=== PATIENT | female | born 1995 | race Caucasian/White ===

== ENCOUNTER 2020-01-19 22:30 | Emergency (ER) | payer SELFPAY ==
[2020-01-19] MEDS ORDERED: ASPIRIN 81 MG TABLET, CHEWABLE PO ONE (23:03)
--- NOTE | 2020-01-19 23:05 | ER Document Report ---
ED Medical Screen (RME) - General Stated Complaint: CHEST/RIGHT ARM PAIN Time Seen by Provider: 01/19/20 22:59 Notes: Patient is a 24-year-old female who presents emergency department with chest pain. States that her pain started about an hour prior to arrival. States the pain is in the middle of her chest. Patient also had right arm pain at the same time. Describes her pain as sharp coming and going. Has a history of PCOS. She is a current half a pack a day smoker. Exam: S1, S2. Twelve-lead EKG shows sinus rhythm at heart rate of 74. Blood pressure elevated, patient does not take blood pressure medication. I have greeted and performed a rapid initial assessment of this patient. A comprehensive ED assessment and evaluation of the patient, analysis of test results and completion of medical decision making process will be conducted by an additional ED providers. TRAVEL OUTSIDE OF THE [place] IN LAST 30 DAYS: No - Related Data Allergies/Adverse Reactions: amoxicillin [Amoxicillin] Allergy (Verified 09/20/15 05:26) Past Medical History - Immunizations Hx Diphtheria, Pertussis, Tetanus Vaccination: Yes Physical Exam - Vital signs Vitals: Temp Pulse Resp BP Pulse Ox 97.9 F 81 20 155/106 H 98 01/19/20 22:45 01/19/20 22:45 01/19/20 22:45 01/19/20 22:45 01/19/20 22:45 Course - Vital Signs Vital signs: Temp Pulse Resp BP Pulse Ox 97.9 F 81 20 155/106 H 98 01/19/20 22:56 01/19/20 22:45 01/19/20 22:45 01/19/20 22:45 01/19/20 22:45
[2020-01-19 23:52] LABS: ABSOLUTE BASOPHILS # (AUTO) 0.1 10^3/uL (0.0-0.2); ABSOLUTE EOSINOPHILS # (AUTO) 0.5 10^3/uL (0.0-0.6); ABSOLUTE LYMPHOCYTES (AUTO) 2.7 10^3/uL (0.5-4.7); ABSOLUTE MONOCYTES (AUTO) 0.8 10^3/uL (0.1-1.4); ABSOLUTE NEUT (AUTO) 8.1 10^3/uL (1.7-8.2); BASOPHILS % (AUTO) 0.8 % (0-2); HEMATOCRIT 42.8 % (36.0-47.0); HEMOGLOBIN 15.2 g/dL (12.0-15.5); LYMPHOCYTES % (AUTO) 22.3 % (13-45); MEAN CORPUSCULAR HEMOGLOBIN 31.8 pg (27.0-33.4); MEAN CORPUSCULAR HGB CONC 35.4 g/dL (32.0-36.0); MEAN CORPUSCULAR VOLUME 90 fl (80-97); MONOCYTES % (AUTO) 6.2 % (3-13); PLATELET COUNT 324 10^3/uL (150-450); RED BLOOD COUNT 4.77 10^6/uL (3.72-5.28); RED CELL DISTRIBUTION WIDTH 12.8 % (11.5-14.0); SEGMENTED NEUTROPHILS % (AUTO) 66.7 % (42-78); TOTAL CELLS COUNTED % (AUTO) 100 %; WHITE BLOOD COUNT 12.2 10^3/uL (4.0-10.5)
[2020-01-20 00:10] LABS: ALBUMIN 4.4 g/dL (3.5-5.0); ALKALINE PHOSPHATASE 73 U/L (38-126); ANION GAP 7 (5-19); ASPARTATE AMINO TRANSFERASE 30 U/L (14-36); BILIRUBIN,TOTAL 0.3 mg/dL (0.2-1.3); BLOOD UREA NITROGEN 13 mg/dL (7-20); CARBON DIOXIDE 28 mmol/L (22-30); CHLORIDE 103 mmol/L (98-107); CREATINE KINASE 35 U/L (30-135); GLUCOSE 97 mg/dL (75-110); POTASSIUM 4.3 mmol/L (3.6-5.0); TOTAL PROTEIN 7.5 g/dL (6.3-8.2)
--- NOTE | 2020-01-20 00:14 | RADIOLOGY REPORT (SQ) ---
CLINICAL INDICATION: chest pain. TECHNIQUE: A single portable AP view was obtained of the chest at 0012 hours. COMPARISON: None. FINDINGS: The cardiomediastinal silhouette is normal. The lungs are grossly clear. No evidence of effusion or pneumothorax. The visualized bones are unremarkable. IMPRESSION: No evidence of active intrathoracic disease. Lungs of low volume but grossly clear
--- NOTE | 2020-01-20 01:49 | ER Document Report ---
ED General - General Chief Complaint: Chest Pain Stated Complaint: CHEST/RIGHT ARM PAIN Time Seen by Provider: 01/19/20 22:59 TRAVEL OUTSIDE OF THE [place] IN LAST 30 DAYS: No - HPI Notes: 24-year-old female history of smoking presents with sudden onset of moderate aching retrosternal chest pain radiating to right arm that began at rest while she was watching TV and gradually improved over the next few hours with no pain currently. Patient denies exertional chest pain, pleuritic chest pain, lower extremity edema, recent travel/immobilization/surgery, - Related Data Allergies/Adverse Reactions: amoxicillin [Amoxicillin] Allergy (Verified 09/20/15 05:26) Past Medical History - Social History Smoking Status: Current Every Day Smoker Frequency of alcohol use: None Drug Abuse: None Family History: Reviewed & Not Pertinent Patient has homicidal ideation: No - Immunizations Hx Diphtheria, Pertussis, Tetanus Vaccination: Yes Physical Exam - Vital signs Vitals: Temp Pulse Resp BP Pulse Ox 97.9 F 81 20 155/106 H 98 01/19/20 22:45 01/19/20 22:45 01/19/20 22:45 01/19/20 22:45 01/19/20 22:45 Course - Vital Signs Vital signs: Temp Pulse Resp BP Pulse Ox 97.9 F 81 23 H 135/108 H 98 01/19/20 22:56 01/19/20 22:45 01/20/20 01:37 01/20/20 01:37 01/20/20 01:39 - Laboratory Result Diagrams: 01/19/20 23:39 01/19/20 23:39 Laboratory results interpreted by me: 01/19/20 23:39 WBC 12.2 H Discharge - Discharge Clinical Impression: Chest pain Qualifiers: Chest pain type: unspecified Qualified Code(s): R07.9 - Chest pain, unspecified Condition: Stable Disposition: HOME, SELF-CARE Additional Instructions: Chest Pain of Unclear Cause The exact cause of your chest pain isn't clear. Fortunately, there is no evidence of a dangerous medical condition. Further testing may be required to find the source of the pain. Most often, we find that this pain is coming from the chest wall -- the mus cles or rib joints in the chest. But chest pain can come from the lung and lung lining, the esophagus, the heart valves or heart lining, and even the stomach or gallbladder. Rest. Eat lightly until the pain is gone. We may prescribe medicine for pain and inflammation. Follow-up with your primary doctor within 1 week. Make sure to have your blood pressure rechecked as it was high in the emergency room, 155/106 then 135/108, and high blood pressure is a risk factor for dangerous diseases such as heart attack and stroke. Return to the ED immediately if your pain worsens, you have trouble breathing, dizziness or fainting, swelling in your legs, or any other worsening or alarming symptoms.
[2020-01-20 04:27] VITALS: BP 135/97
--- NOTE | 2020-01-20 23:33 | EKG REPORT ---
SEVERITY:- NORMAL ECG - SINUS RHYTHM : Confirmed by: Stephanie Acevedo 20-Jan-2020 23:33:19
== END 2020-01-20 04:20 | disposition home or self-care (01) ==
LOC: ER 22:30
DX: R07.9 Chest pain, unspecified (principal); F17.200 Nicotine dependence, unspecified, uncomplicated; Z88.0 Allergy status to penicillin
CPT/HCPCS: 36415; 71045; 80053; 82550; 83735; 84484; 85025; 85379; 93005; 93010; 99285

== ENCOUNTER 2020-01-26 01:27 | Emergency (ER) | payer SELFPAY ==
[2020-01-26 02:52] LABS: ABSOLUTE BASOPHILS # (AUTO) 0.1 10^3/uL (0.0-0.2); ABSOLUTE EOSINOPHILS # (AUTO) 0.5 10^3/uL (0.0-0.6); ABSOLUTE LYMPHOCYTES (AUTO) 2.7 10^3/uL (0.5-4.7); ABSOLUTE MONOCYTES (AUTO) 0.7 10^3/uL (0.1-1.4); ABSOLUTE NEUT (AUTO) 7.9 10^3/uL (1.7-8.2); BASOPHILS % (AUTO) 0.8 % (0-2); HEMATOCRIT 44.4 % (36.0-47.0); HEMOGLOBIN 15.5 g/dL (12.0-15.5); LYMPHOCYTES % (AUTO) 22.9 % (13-45); MEAN CORPUSCULAR HEMOGLOBIN 31.3 pg (27.0-33.4); MEAN CORPUSCULAR HGB CONC 34.8 g/dL (32.0-36.0); MEAN CORPUSCULAR VOLUME 90 fl (80-97); MONOCYTES % (AUTO) 6.3 % (3-13); PLATELET COUNT 330 10^3/uL (150-450); RED BLOOD COUNT 4.94 10^6/uL (3.72-5.28); RED CELL DISTRIBUTION WIDTH 12.7 % (11.5-14.0); TOTAL CELLS COUNTED % (AUTO) 100 %; WHITE BLOOD COUNT 11.9 10^3/uL (4.0-10.5)
[2020-01-26 03:09] LABS: ALBUMIN 4.3 g/dL (3.5-5.0); ALKALINE PHOSPHATASE 78 U/L (38-126); ANION GAP 9 (5-19); ASPARTATE AMINO TRANSFERASE 29 U/L (14-36); BILIRUBIN,TOTAL 0.3 mg/dL (0.2-1.3); BLOOD UREA NITROGEN 11 mg/dL (7-20); CALCIUM 9.7 mg/dL (8.4-10.2); CARBON DIOXIDE 25 mmol/L (22-30); CHLORIDE 104 mmol/L (98-107); CREATINE KINASE 41 U/L (30-135); GLUCOSE 99 mg/dL (75-110); POTASSIUM 4.2 mmol/L (3.6-5.0); TOTAL PROTEIN 7.8 g/dL (6.3-8.2)
[2020-01-26 03:25] LABS: CREATINE KINASE MB 0.27 ng/mL (<4.55)
[2020-01-26 03:26] LABS: TROPONIN I < 0.012 ng/mL
--- NOTE | 2020-01-26 06:24 | RADIOLOGY REPORT (SQ) ---
EXAM DESCRIPTION: XR CHEST 2 VIEWS COMPLETED DATE/TME: 01/26/2020 05:31 CLINICAL HISTORY: chest pain; shortness of breath COMPARISON: 01/20/2020 FINDINGS: Frontal and lateral views of the chest. Cardiomediastinal silhouette: Cardiomegaly. Low lung volumes. Leads overlie the chest. Lungs: No consolidation, pneumothorax, or pleural effusion. Bones: No acute osseous abnormality. Upper abdomen: No abnormality identified. IMPRESSION: 1. No acute pulmonary process identified. 2. Cardiomegaly.
--- NOTE | 2020-01-26 06:48 | RADIOLOGY REPORT (SQ) ---
EXAM DESCRIPTION: US ABDOMEN LIMITED COMPLETED DATE/TME: 01/26/2020 05:45 CLINICAL HISTORY: 24 years, Female, RUQ pain COMPARISON: None. TECHNIQUE: Limited right upper quadrant ultrasound LIMITATIONS: None. FINDINGS: Echogenic appearance to the liver consistent with fatty infiltrative change. Multiple stones in the gallbladder lumen. Negative sonographic Shannon sign. No gallbladder wall thickening. No pericholecystic fluid. CBD measures 2.5 mm. Pancreas not well seen due to bowel gas. The visualized right kidney, abdominal aorta, inferior vena cava are unremarkable. No ascites IMPRESSION: Fatty infiltrative change to the liver. Cholelithiasis. No sonographic evidence for cholecystitis copyright 2010 [employer]- All Rights Reserved
--- NOTE | 2020-01-26 07:27 | ER Document Report ---
ED Cardiac - General Chief Complaint: Chest Pain Stated Complaint: CHEST PAIN/SHORTNESS OF BREATH Time Seen by Provider: 01/26/20 05:29 Primary Care Provider: [facility] [Provider Group] - Follow up as needed Notes: Patient is a 24-year-old female who presents to the emergency department with a chief complaint of chest pain. Patient was seen here in the emergency department last week and had a normal cardiac work-up. Patient states that she continues to have pain in her chest. Patient also states that she sometimes feels short of breath. Denies any vomiting. Patient does not take any medications. TRAVEL OUTSIDE OF THE [place] IN LAST 30 DAYS: No - Related Data Allergies/Adverse Reactions: amoxicillin [Amoxicillin] Allergy (Verified 09/20/15 05:26) Past Medical History - Social History Smoking Status: Current Every Day Smoker Frequency of alcohol use: None Drug Abuse: None Family History: Reviewed & Not Pertinent Patient has homicidal ideation: No - Immunizations Hx Diphtheria, Pertussis, Tetanus Vaccination: Yes Review of Systems - Review of Systems Notes: REVIEW OF SYSTEMS: CONSTITUTIONAL : Denies recent illness. Denies recent unintentional weight loss. Denies fever, chills, or sweats. EENT: Denies eye, ear, throat, or mouth pain, discharge, or symptoms. Denies nasal or sinus congestion. CARDIOVASCULAR: See HPI. RESPIRATORY: See HPI. GASTROINTESTINAL: Denies nausea, vomiting, and diarrhea. Denies abdominal pain. Denies constipation. GENITOURINARY: Denies difficulty urinating, burning, blood in urine, urgency or frequency. MUSCULOSKELETAL: Denies neck and back pain. Denies joint pain or swelling. SKIN: Denies rash, itchiness, or lesions HEMATOLOGIC : Denies easy bruising or bleeding. LYMPHATIC: Denies swollen, painful, enlarged glands. NEUROLOGICAL: Denies no numbness or tingling denies weakness. Denies headache. Denies altered mental status. Denies alteration in speech. PSYCHIATRIC: Denies stress, anxiety, alteration in sleep patterns, or depression. All other systems reviewed and negative. Physical Exam - Vital signs Vitals: Temp 98.4 F 01/26/20 01:41 - Notes Notes: PHYSICAL EXAMINATION: GENERAL: Appears obese, no acute distress. HEAD: Normocephalic, atraumatic. EYES: PERRL, conjunctiva normal, all extraocular movements intact, sclera nonicteric ENT: Moist mucous membranes. NECK: Supple, no noticeable swelling, redness, rash. Normal range of motion. LUNGS: Equal breath sounds bilaterally and clear to auscultation. No wheezes rales or rhonchi. CARDIOVASCULAR: S1-S2, regular rate, regular rhythm. Radial pulses 2+, normal. ABDOMEN: Normoactive bowel sounds. Soft, tender right upper quadrant abdomen, mild guarding, no rebound tenderness, and no masses palpated. EXTREMITIES: Normal strength and range of motion, no pitting or edema. No cyanosis. NEUROLOGICAL: Moves all extremities upon command. Strength 5/5 in all extremities. PSYCH: Normal mood, normal affect. SKIN: Warm, dry. No rash, lesions, ulcerations noted. Normal skin turgor. Course - Re-evaluation Re-evalutation: 01/26/20 Hematology shows a slight leukocytosis of 11,900, but no shift. Chemistries are unremarkable. Troponin is negative. Initial troponin was drawn in triage. Second troponin was already drawn prior to my assessment. BNP is negative and lipase is negative. Patient has cholelithiasis noted. No Cholecystitis noted on ultrasound. Patient is to follow-up with outpatient surgery. I had a very lengthy conversation with the patient about her weight and eating habits. She states that she will stop eating fatty foods. Follow-up precautions were given. Verbal discharge instructions were given to the patient. They verbalized understanding. They are stable for discharge. - Vital Signs Vital signs: Temp Pulse Resp BP Pulse Ox 98.4 F 74 18 135/79 H 96 01/26/20 01:41 01/26/20 01:43 01/26/20 07:22 01/26/20 07:22 01/26/20 07:22 - Laboratory Result Diagrams: 01/26/20 02:30 01/26/20 02:30 Laboratory results interpreted by me: 01/26/20 02:30 WBC 11.9 H Discharge - Discharge Clinical Impression: Chest pain Qualifiers: Chest pain type: unspecified Qualified Code(s): R07.9 - Chest pain, unspecified Cholelithiasis Qualifiers: Cholelithiasis location: gallbladder Cholecystitis presence: without cholecystitis Biliary obstruction: without biliary obstruction Qualified Code(s): K80.20 - Calculus of gallbladder without cholecystitis without obstruction Condition: Stable Disposition: HOME, SELF-CARE Additional Instructions: Your ultrasound and history is most consistent with symptomatic cholelithiasis. This means that you have stones in your gallbladder that are causing pain when you eat fatty foods. You will likely need to have your gallbladder out in the coming weeks to prevent further pain. The best thing you can do at this time is to avoid fat-containing foods which will trigger your symptoms. Please contact the general surgeon listed in your discharge paperwork at your earliest ability for consultation regarding possible removal of your gallbladder. Please return to the emergency department if you develop persistent pain in your abdomen that will not go away, persistent vomiting, fever greater than 100.4F, pass out, or have any other symptoms that are concerning to you. Referrals: [facility] [Provider Group] - Follow up as needed
[2020-01-26 08:00] VITALS: BP 135/79
--- NOTE | 2020-01-26 09:32 | EKG REPORT ---
SEVERITY:- NORMAL ECG - SINUS RHYTHM : Confirmed by: Yoli Vo MD 26-Jan-2020 09:31:41
== END 2020-01-26 07:53 | disposition home or self-care (01) ==
LOC: ER 01:27
DX: R07.9 Chest pain, unspecified (principal); K80.20 Calculus of gallbladder without cholecystitis without obstruction; K76.0 Fatty (change of) liver, not elsewhere classified; R06.02 Shortness of breath; F17.200 Nicotine dependence, unspecified, uncomplicated; Z88.0 Allergy status to penicillin; D72.829 Elevated white blood cell count, unspecified
CPT/HCPCS: 36415; 71046; 76705; 80053; 82550; 82553; 83690; 83880; 84484; 85025; 93005; 93010; 99285

== ENCOUNTER 2020-02-15 12:22 | Emergency (ER) | payer SELFPAY ==
--- NOTE | 2020-02-15 13:05 | ER Document Report ---
ED Medical Screen (RME) - General Chief Complaint: Abdominal Pain Stated Complaint: ABDOMINAL PAIN Notes: 24-year-old female with a past medical history of gallstones presenting today with acute onset of right upper quadrant pain that radiates up to her right shoulder. It is similar in onset to her previous gallstone attacks. One episode of vomiting this morning. Has decreased appetite. Still feels nauseous. Denies any fevers, chills, shortness of breath, diarrhea, dysuria or additional symptoms Last menstrual period was January 30. Reports that she does not take any medications. I have greeted and performed a rapid initial assessment of this patient. A co mprehesive ED assessment and evaluation of this patient, analysis of test results and completion of the medical decision-making process will be conducted by additional ED providers. TRAVEL OUTSIDE OF THE [place] IN LAST 30 DAYS: No - Related Data Allergies/Adverse Reactions: amoxicillin [Amoxicillin] Allergy (Verified 09/20/15 05:26) Past Medical History - Social History Chew tobacco use (# tins/day): No Frequency of alcohol use: None Drug Abuse: None - Immunizations Hx Diphtheria, Pertussis, Tetanus Vaccination: Yes Review of Systems - Review of Systems Constitutional: No symptoms reported EENT: No symptoms reported Cardiovascular: No symptoms reported Respiratory: No symptoms reported Gastrointestinal: See HPI Genitourinary: No symptoms reported Physical Exam - Vital signs Vitals: Temp Pulse Resp BP Pulse Ox 98.4 F 77 16 149/95 H 96 02/15/20 12:02/15/20 12:02/15/20 12:02/15/20 12:02/15/20 12:25 Interpretation: Hypertensive. No: Febrile - Notes Notes: Right upper quadrant is tender to palpation. No rebound or guarding. Bowel sounds heard in all 4 quadrants. Course - Vital Signs Vital signs: Temp Pulse Resp BP Pulse Ox 98.4 F 77 16 149/95 H 96 02/15/20 12:57 02/15/20 12:02/15/20 12:25 02/15/20 12:25 02/15/20 12:25
[2020-02-15] MEDS ORDERED: ONDANSETRON 4 MG TAB.RAPDIS PO ONE (13:07)
[2020-02-15] MEDS ORDERED: MORPHINE SULFATE 10 MG/ML INJ IV ONE ×2 (13:08→14:56)
[2020-02-15 13:52] LABS: APPEARANCE,URINE SLIGHTLY-CLOUDY; BILIRUBIN,URINE NEGATIVE (NEGATIVE); COLOR,URINE YELLOW; GLUCOSE, URINE NEGATIVE (NEGATIVE); KETONES,URINE NEGATIVE (NEGATIVE); LEUKOCYTE ESTERASE,URINE LARGE (NEGATIVE); NITRITE,URINE NEGATIVE (NEGATIVE); PROTEIN,URINE NEGATIVE (NEGATIVE); URINE SPECIFIC GRAVITY 1.005; UROBILINOGEN,URINE NEGATIVE mg/dL (<2.0)
[2020-02-15 13:57] LABS: ABSOLUTE BASOPHILS # (AUTO) 0.1 10^3/uL (0.0-0.2); ABSOLUTE EOSINOPHILS # (AUTO) 0.2 10^3/uL (0.0-0.6); ABSOLUTE MONOCYTES (AUTO) 0.7 10^3/uL (0.1-1.4); BASOPHILS % (AUTO) 0.5 % (0-2); EOSINOPHILS % (AUTO) 2.4 % (0-6); HEMATOCRIT 46.1 % (36.0-47.0); HEMOGLOBIN 16.2 g/dL (12.0-15.5); LYMPHOCYTES % (AUTO) 19.8 % (13-45); MEAN CORPUSCULAR HEMOGLOBIN 32.1 pg (27.0-33.4); MEAN CORPUSCULAR HGB CONC 35.3 g/dL (32.0-36.0); MEAN CORPUSCULAR VOLUME 91 fl (80-97); MONOCYTES % (AUTO) 7.4 % (3-13); PLATELET COUNT 316 10^3/uL (150-450); RED BLOOD COUNT 5.07 10^6/uL (3.72-5.28); RED CELL DISTRIBUTION WIDTH 13.1 % (11.5-14.0); SEGMENTED NEUTROPHILS % (AUTO) 69.9 % (42-78); TOTAL CELLS COUNTED % (AUTO) 100 %
[2020-02-15 14:23] LABS: ALBUMIN 4.8 g/dL (3.5-5.0); ALKALINE PHOSPHATASE 68 U/L (38-126); ANION GAP 8 (5-19); ASPARTATE AMINO TRANSFERASE 35 U/L (14-36); BILIRUBIN,TOTAL 0.5 mg/dL (0.2-1.3); BLOOD UREA NITROGEN 10 mg/dL (7-20); CALCIUM 10.4 mg/dL (8.4-10.2); CARBON DIOXIDE 26 mmol/L (22-30); CHLORIDE 105 mmol/L (98-107); GLUCOSE 100 mg/dL (75-110); POTASSIUM 4.6 mmol/L (3.6-5.0); TOTAL PROTEIN 8.2 g/dL (6.3-8.2)
--- NOTE | 2020-02-15 14:50 | ER Document Report ---
ED GI/ - General Chief Complaint: Abdominal Pain Stated Complaint: ABDOMINAL PAIN Time Seen by Provider: 02/15/20 14:36 Primary Care Provider: [facility] [Provider Group] - Follow up as needed [facility] [Provider Group] - Follow up as needed Notes: Patient is a 24-year-old female who presents emergency department with a chief complaint of abdominal pain. Patient reports starting last night she developed right upper quadrant pain that radiates into her right shoulder. Patient reports within the past month she was seen here in the emergency department and was told that she was having problems with her gallbladder. Patient reports she did attempt to follow-up with [facility] to have her gallbladder removed but cannot afford the initial cost to be seen due to lack of health insurance. Patient reports she was also denied Medicaid. Patient states that she did attempt to eat breakfast this morning and vomited once. Patient reports she is also having some urinary frequency and lower pelvic cramping. Patient reports since being seen in the emergency department she has limited caffeine, soda and limited fats. Patient reports she has been eating a bland diet over the past 2 weeks with very little improvement. TRAVEL OUTSIDE OF THE [place] IN LAST 30 DAYS: No - Related Data Allergies/Adverse Reactions: amoxicillin [Amoxicillin] Allergy (Verified 09/20/15 05:26) Past Medical History - General Information source: Patient - Social History Smoking Status: Former Smoker Chew tobacco use (# tins/day): No Frequency of alcohol use: None Drug Abuse: None Lives with: Family Family History: Reviewed & Not Pertinent - Past Medical History Cardiac Medical History: Reports: None Pulmonary Medical History: Reports: None EENT Medical History: Reports: None Neurological Medical History: Reports: None Endocrine Medical History: Reports: None Renal/ Medical History: Reports: None Malignancy Medical History: Reports: None GI Medical History: Reports: None Musculoskeletal Medical History: Reports None Skin Medical History: Reports None Psychiatric Medical History: Reports: None Traumatic Medical History: Reports: None Surgical Hx: Negative - Immunizations Hx Diphtheria, Pertussis, Tetanus Vaccination: Yes Review of Systems - Review of Systems Constitutional: No symptoms reported EENT: No symptoms reported Cardiovascular: No symptoms reported Respiratory: No symptoms reported Gastrointestinal: See HPI Genitourinary: See HPI Female Genitourinary: No symptoms reported Musculoskeletal: No symptoms reported Skin: No symptoms reported Physical Exam - Vital signs Vitals: Temp Pulse Resp BP Pulse Ox 98.4 F 77 16 149/95 H 96 02/15/20 12:25 02/15/20 12:25 02/15/20 12:25 02/15/20 12:25 02/15/20 12:25 Interpretation: Hypertensive - Notes Notes: GENERAL: Well-appearing, well-nourished and in no acute distress. HEAD: Atraumatic, normocephalic. EYES: Pupils equal round and reactive to light, extraocular movements intact, sclera anicteric, conjunctiva are normal. ENT: TMs normal, nares patent, oropharynx clear without exudates. Moist mucous membranes. NECK: Normal range of motion, supple without lymphadenopathy or JVD. LUNGS: Breath sounds clear to auscultation bilaterally and equal. No wheezes rales or rhonchi. HEART: Regular rate and rhythm without murmurs, rubs or gallops. ABDOMEN: Soft, mild ruq ttp, abd round, normoactive bowel sounds. No guarding, no rebound. No masses appreciated. BACK: No cervical, thoracic, lumbar midline tenderness. No saddle anesthesia, normal distal neurovascular exam. No CVA tenderness. GENITOURINARY: Deferred. EXTREMITIES: Normal range of motion, no pitting or edema. No clubbing or cyanosis. NEUROLOGICAL: Cranial nerves II through XII grossly intact. Normal speech, normal gait. PSYCH: Normal mood, normal affect. SKIN: Warm, Dry, normal turgor, no rashes or lesions noted. Course - Re-evaluation Re-evalutation: 02/15/20 Prior to discharge the patient states that her pain has significantly improved. Her vital signs are stable. I did inform the patient that her ultrasound did not show an acute cholecystitis or emergent issue. Ultimately the patient does have gallstones and if this does continue to bother her this will need to be removed. Patient aware of this. Patient reports she has having financial struggles. She states she has filled out the paperwork for [facility] and is awaiting a follow-up appointment. Patient instructed to return if symptoms worsen or change. We will treat urinary tract infection, give pain medication as well as nausea medication. Patient was able to tolerate liquids prior to discharge. - Vital Signs Vital signs: Temp Pulse Resp BP Pulse Ox 98.0 F 60 18 120/83 98 02/15/20 16:57 02/15/20 16:57 02/15/20 16:57 02/15/20 16:57 02/15/20 16:57 - Laboratory Result Diagrams: 02/15/20 13:38 02/15/20 13:38 Laboratory results interpreted by me: 02/15/20 02/15/20 02/15/20 13:38 13:38 13:38 Hgb 16.2 H Calcium 10.4 H ALT 46 H Ur Leukocyte Esterase LARGE H 02/15/20 14:49 Patient does not have a leukocytosis, significant anemia, alteration in electrolytes or kidney function. Patient does have a large amount of leukocytes with 10 WBCs in the urine. Laboratory 02/15/20 02/15/20 02/15/20 13:38 13:38 13:38 WBC 10.0 RBC 5.07 Hgb 16.2 H Hct 46.1 MCV 91 MCH 32.1 MCHC 35.3 RDW 13.1 Plt Count 316 Lymph % (Auto) 19.8 [place] % (Auto) 7.4 Eos % (Auto) 2.4 Baso % (Auto) 0.5 Absolute Neuts (auto) 7.0 Absolute Lymphs (auto) 2.0 Absolute Monos (auto) 0.7 Absolute Eos (auto) 0.2 Absolute Basos (auto) 0.1 Seg Neutrophils % 69.9 Sodium 138.5 Potassium 4.6 Chloride 105 Carbon Dioxide 26 Anion Gap 8 BUN 10 Creatinine 0.80 Est GFR ( Amer) > 60 Est GFR (MDRD) Non-Af > 60 Glucose 100 Calcium 10.4 H Total Bilirubin 0.5 Direct Bilirubin 0.0 Neonat Total Bilirubin Not Reportable Neonat Direct Bilirubin Not Reportable Neonat Indirect Bili Not Reportable AST 35 ALT 46 H Alkaline Phosphatase 68 Total Protein 8.2 Albumin 4.8 Lipase 65.9 Urine Color YELLOW Urine Appearance SLIGHTLY-CLOUDY Urine pH 5.0 Ur Specific [place] 1.005 Urine Protein NEGATIVE Urine Glucose (UA) NEGATIVE Urine Ketones NEGATIVE Urine Blood NEGATIVE Urine Nitrite NEGATIVE Urine Bilirubin NEGATIVE Urine Urobilinogen NEGATIVE Ur Leukocyte Esterase LARGE H Urine WBC (Auto) 10 Urine RBC (Auto) 3 Urine Bacteria (Auto) TRACE Squamous Epi Cells Auto 2 Urine Mucus (Auto) RARE Urine Ascorbic Acid NEGATIVE Urine HCG, Qual NEGATIVE - Diagnostic Test Radiology reviewed: Reports reviewed Radiology results interpreted by me: 02/15/20 16:24 Abdomen Ultrasound 02/15/20 13:05 IMPRESSION: Gallstones. Fatty infiltrated liver. Discharge - Discharge Clinical Impression: Dysuria, Urinary frequency, Gallstones Condition: Stable Disposition: HOME, SELF-CARE Additional Instructions: *Today are seen the emergency department for abdominal pain. Does appear that you are having a gallbladder attack. The ultrasound was performed did not show any acute inflammation around the gallbladder. You do have stones. Please keep following up with the [facility]. I have referred you to [facility]. Please return if you develop severe pain, repeated vomiting, fever, jaundice which is yellow coloring of your skin otherwise your eyes. Gallbladder Disease Your evaluation shows evidence of gallbladder disease. The gallbladder is a pouch under the liver which stores bile. Stones, infection, or irritation of the gallbladder cause attacks of pain. Certain foods -- fats in particular -- may provoke attacks. The usual treatment for gallbladder disease is surgical removal of the gallbladder -- called a cholecystectomy. You will be referred to a physician q ualified to advise you on the best treatment for your problem. Hospitalization is not necessary. Take clear liquids only until you are painfree. After that, you should stay on a low-fat diet, with frequent SMALL meals. Call the doctor or return at once if you develop severe pain, repeated vomiting, fever, or jaundice (a yellow color in the skin and whites of the eyes). Prescriptions: Ondansetron [Zofran Odt 4 mg Tablet] 1 tab PO Q4HP PRN #10 tab.rapdis PRN Reason: Ketorolac Tromethamine [Toradol 10 mg Tablet] 10 mg PO Q8HP PRN #12 tablet PRN Reason: Nitrofurantoin Monohyd/M-Cryst [Macrobid 100 mg Capsule] 100 mg PO BID 5 Days #10 cap Referrals: [facility] [Provider Group] - Follow up as needed [facility] [Provider Group] - Follow up as needed
[2020-02-15] MEDS ORDERED: KETOROLAC TROMETHAMINE INJ/PF 30 MG/1 ML SDV IV ONE (14:53)
[2020-02-15] MEDS ORDERED: ONDANSETRON HCL INJ/PF 4 MG/2 ML SDV IV ONE (14:53)
[2020-02-15] MEDS ORDERED: NORMAL SALINE 1000 ML 1,000 ML IV ONE (14:53)
--- NOTE | 2020-02-15 15:43 | RADIOLOGY REPORT (SQ) ---
EXAM DESCRIPTION: U/S ABDOMEN LIMITED W/O DOP IMAGES COMPLETED DATE/TIME: 02/15/2020 3:32 pm REASON FOR STUDY: ruq pain COMPARISON: None. TECHNIQUE: Dynamic and static grayscale images acquired of the abdomen and recorded on PACS. Additio nal selected color Doppler and spectral images recorded. LIMITATIONS: 01/26/2020 FINDINGS: PANCREAS: Visualized portions the pancreas are unremarkable. The pancreas is mildly echog enic. LIVER: No masses. The liver is echogenic consistent with fatty infiltration. LIVER VASCULATURE: Normal directional flow of the main portal vein and hepatic veins. GALLBLADDER: Gallstones. No wall thickening or pericholecystic edema. ULTRASOUND-DETECTED GOMEZ'S SIGN: Negative. INTRAHEPATIC DUCTS AND COMMON DUCT: CBD and intrahepatic ducts normal caliber. No filling defects. INFERIOR VENA CAVA: Normal flow. AORTA: No aneurysm. RIGHT KIDNEY: Normal size. Normal echogenicity. No solid or suspicious masses. No hydronephrosis. No calcifications. PERITONEAL AND RIGHT PLEURAL SPACE: No ascites or effusions. OTHER: No other significant findings. IMPRESSION: Gallstones. Fatty infiltrated liver. TECHNICAL DOCUMENTATION: JOB ID: [id number] [employer]- All Rights Reserved Reading location - IP/workstation name: [email or web address]
[2020-02-15 16:57] VITALS: BP 120/83
== END 2020-02-15 16:57 | disposition home or self-care (01) ==
LOC: ER 12:22
DX: K80.80 Other cholelithiasis without obstruction (principal); R35.0 Frequency of micturition; R30.0 Dysuria; R10.9 Unspecified abdominal pain; Z88.0 Allergy status to penicillin
CPT/HCPCS: 99284; 96361; 96374; 96375; 36415; 83690; 85025; 81025; 80053; 81001; 76705; J1885; J2270; J2405; J7030

== ENCOUNTER 2020-02-20 20:41 | Emergency (ER) | payer SELFPAY ==
--- NOTE | 2020-02-20 21:11 | ER Document Report ---
ED Medical Screen (RME) - General Chief Complaint: Chest Pain Stated Complaint: CHEST PAIN,SHORTNES OF BREATH Time Seen by Provider: 02/20/20 21:04 Mode of Arrival: Ambulatory Information source: Patient Notes: 24-year-old female presented to ED for complaint of shortness of breath and chest pain. She states she does have a history of gallstones and fatty liver. She also has a history of anxiety. Lungs are clear to auscultation, respirations regular nonlabored, and abdomen soft nontender I have greeted and performed a rapid initial assessment of this patient. A comprehensive ED assessment and evaluation of the patient, analysis of test results and completion of medical decision making process will be conducted by an additional ED providers. TRAVEL OUTSIDE OF THE [place] IN LAST 30 DAYS: No - Related Data Allergies/Adverse Reactions: amoxicillin [Amoxicillin] Allergy (Verified 09/20/15 05:26) Past Medical History - Social History Chew tobacco use (# tins/day): No Frequency of alcohol use: None Drug Abuse: None - Immunizations Hx Diphtheria, Pertussis, Tetanus Vaccination: Yes Physical Exam - Vital signs Vitals: Temp Pulse Resp BP Pulse Ox 98.5 F 69 20 152/98 H 99 02/20/20 20:53 02/20/20 20:53 02/20/20 20:53 02/20/20 20:53 02/20/20 20:53 Course - Vital Signs Vital signs: Temp Pulse Resp BP Pulse Ox 98.5 F 69 20 152/98 H 99 02/20/20 20:53 02/20/20 20:53 02/20/20 20:53 02/20/20 20:53 02/20/20 20:53
[2020-02-20 21:40] LABS: ABSOLUTE EOSINOPHILS # (AUTO) 0.3 10^3/uL (0.0-0.6); ABSOLUTE LYMPHOCYTES (AUTO) 2.9 10^3/uL (0.5-4.7); ABSOLUTE MONOCYTES (AUTO) 0.8 10^3/uL (0.1-1.4); ABSOLUTE NEUT (AUTO) 6.4 10^3/uL (1.7-8.2); BASOPHILS % (AUTO) 0.5 % (0-2); EOSINOPHILS % (AUTO) 2.6 % (0-6); HEMATOCRIT 44.5 % (36.0-47.0); HEMOGLOBIN 15.7 g/dL (12.0-15.5); LYMPHOCYTES % (AUTO) 28.1 % (13-45); MEAN CORPUSCULAR HEMOGLOBIN 31.5 pg (27.0-33.4); MEAN CORPUSCULAR HGB CONC 35.2 g/dL (32.0-36.0); MEAN CORPUSCULAR VOLUME 90 fl (80-97); MONOCYTES % (AUTO) 7.2 % (3-13); PLATELET COUNT 329 10^3/uL (150-450); RED BLOOD COUNT 4.96 10^6/uL (3.72-5.28); SEGMENTED NEUTROPHILS % (AUTO) 61.6 % (42-78); TOTAL CELLS COUNTED % (AUTO) 100 %; WHITE BLOOD COUNT 10.5 10^3/uL (4.0-10.5)
[2020-02-20 21:43] LABS: APPEARANCE,URINE SLIGHTLY-CLOUDY; BILIRUBIN,URINE NEGATIVE (NEGATIVE); COLOR,URINE YELLOW; GLUCOSE, URINE NEGATIVE (NEGATIVE); KETONES,URINE NEGATIVE (NEGATIVE); LEUKOCYTE ESTERASE,URINE SMALL (NEGATIVE); NITRITE,URINE NEGATIVE (NEGATIVE); PROTEIN,URINE NEGATIVE (NEGATIVE); URINE SPECIFIC GRAVITY 1.009; UROBILINOGEN,URINE NEGATIVE mg/dL (<2.0)
[2020-02-20 21:52] LABS: ALBUMIN 4.6 g/dL (3.5-5.0); ALKALINE PHOSPHATASE 72 U/L (38-126); ANION GAP 7 (5-19); ASPARTATE AMINO TRANSFERASE 30 U/L (14-36); BILIRUBIN,TOTAL 0.5 mg/dL (0.2-1.3); BLOOD UREA NITROGEN 9 mg/dL (7-20); CALCIUM 10.1 mg/dL (8.4-10.2); CARBON DIOXIDE 26 mmol/L (22-30); CHLORIDE 105 mmol/L (98-107); GLUCOSE 84 mg/dL (75-110); POTASSIUM 4.1 mmol/L (3.6-5.0); TOTAL PROTEIN 7.8 g/dL (6.3-8.2)
--- NOTE | 2020-02-20 21:54 | EKG REPORT ---
SEVERITY:- BORDERLINE ECG - SINUS RHYTHM BORDERLINE T ABNORMALITIES, ANTERIOR LEADS : Confirmed by: Yoli Vo MD 20-Feb-2020 21:52:05
--- NOTE | 2020-02-20 22:13 | RADIOLOGY REPORT (SQ) ---
CLINICAL INDICATION: chest pain. TECHNIQUE: PA and lateral views were obtained of the chest COMPARISON: January 20, 2020. FINDINGS: The cardiomediastinal silhouette is normal. The lungs are grossly clear. No evidence of effusion or pneumothorax. Visualized bones are unremarkable. . IMPRESSION: No evidence of active intrathoracic disease .
--- NOTE | 2020-02-20 22:16 | ER Document Report ---
ED General - General Chief Complaint: Chest Pain Stated Complaint: CHEST PAIN,SHORTNES OF BREATH Time Seen by Provider: 02/20/20 21:04 Mode of Arrival: Ambulatory Information source: Patient Notes: Patient is a 25-year-old female patient presenting to the emergency department with complaints of chest pain. Patient reports chest pain started at 9:00 this morning when she woke up. She states the pain radiates to the right side of her chest and right upper back. She reports mild shortness of breath that is worse with taking deep breaths. She denies any nausea, vomiting or cough. EKG was obtained by the triage nurse, was reviewed by me shows a normal sinus rhythm with no ST segment elevations or depressions. Normal axis and normal intervals. Patient has no history of pulmonary embolism or DVT. She is a non-smoker, has not traveled recently and is not taking any hormone replacement therapy or control pills. TRAVEL OUTSIDE OF THE [place] IN LAST 30 DAYS: No - Related Data Allergies/Adverse Reactions: amoxicillin [Amoxicillin] Allergy (Verified 09/20/15 05:26) Past Medical History - General Information source: Patient - Social History Smoking Status: Current Every Day Smoker Chew tobacco use (# tins/day): No Frequency of alcohol use: None Drug Abuse: None Family History: Reviewed & Not Pertinent Patient has homicidal ideation: No - Medical History Medical History: Negative - Patient area Surgical Hx: Negative - Immunizations Hx Diphtheria, Pertussis, Tetanus Vaccination: Yes Review of Systems - Review of Systems Constitutional: No symptoms reported EENT: No symptoms reported Cardiovascular: See HPI Respiratory: See HPI Gastrointestinal: No symptoms reported Genitourinary: No symptoms reported Female Genitourinary: No symptoms reported Musculoskeletal: No symptoms reported Skin: No symptoms reported Hematologic/Lymphatic: No symptoms reported Neurological/Psychological: No symptoms reported -: Yes All other systems reviewed and negative Physical Exam - Vital signs Vitals: Temp Pulse Resp BP Pulse Ox 98.5 F 69 20 152/98 H 99 02/20/20 20:53 02/20/20 20:53 02/20/20 20:53 02/20/20 20:53 02/20/20 20:53 - Notes Notes: PHYSICAL EXAMINATION: GENERAL: Well-appearing, well-nourished and in no acute distress. HEAD: Atraumatic, normocephalic. EYES: Pupils equal round and reactive to light, extraocular movements intact, conjunctiva are normal. ENT: Nares patent, oropharynx clear without exudates. Moist mucous membranes. NECK: Normal range of motion, supple without lymphadenopathy LUNGS: Breath sounds clear to auscultation bilaterally and equal. No wheezes rales or rhonchi. HEART: Regular rate and rhythm without murmurs ABDOMEN: Soft, nontender, nondistended abdomen. No guarding, no rebound. No masses appreciated. Female : deferred Musculoskeletal: Normal range of motion, no pitting or edema. No cyanosis. NEUROLOGICAL: Cranial nerves grossly intact. Normal speech, normal gait. Normal sensory, motor exams PSYCH: Normal mood, normal affect. SKIN: Warm, Dry, normal turgor, no rashes or lesions noted. Course - Re-evaluation Re-evalutation: 02/20/20 23:18 Patient is PERC negative. Wells score for PE 0 points. - Vital Signs Vital signs: Temp Pulse Resp BP Pulse Ox 98.3 F 84 21 H 138/93 H 97 02/21/20 02:22 02/21/20 02:22 02/21/20 02:22 02/21/20 02:22 02/21/20 02:22 - Laboratory Result Diagrams: 02/20/20 21:15 02/20/20 21:15 Laboratory results interpreted by me: 02/20/20 02/20/20 02/20/20 21:15 21:15 21:20 Hgb 15.7 H ALT 36 H Ur Leukocyte Esterase SMALL H Discharge - Discharge Clinical Impression: Shortness of breath Condition: Stable Disposition: HOME, SELF-CARE Additional Instructions: Your work-up today was reassuring. We looked at your cardiac enzymes and also did some blood work that helps give indications if there is a blood clot in the lungs. All of your testing today was normal. Please follow-up with your primary care provider if you continue to have the same amount of shortness of breath or chest pain. Please return to the emergency department with any new or worsening symptoms.
--- NOTE | 2020-02-20 23:05 | RADIOLOGY REPORT (SQ) ---
CLINICAL INDICATION: RUQ/chest/back pain. . TECHNIQUE: Real time multiplanar ultrasonographic ramos scale imaging was obtained of the right upper quadrant. 70 images obtained. COMPARISON: February 15, 2020. CORRELATION: None. FINDINGS: The liver is of increased echotexture. More dependent portions of the liver are not well seen due to echodensity of the near field. No evidence of intrahepatic or extrahepatic biliary ductal dilatation. The common bile duct measures 3 millimeters. Portal vein is patent and appropriate in the visualized portion. The gallbladder is nondistended. Cholelithiasis.. No surrounding inflammatory changes. No evidence of gallbladder wall thickening or edema. The midline structures are unremarkable in the visualized portion. . Right kidney measures 11.5 cm. It is unremarkable IMPRESSION: Medical hepatic disease, likely steatosis. Cholelithiasis without cholecystitis or ductal dilatation. No interval change from prior.
[2020-02-21 02:39] VITALS: BP 138/93
== END 2020-02-21 02:22 | disposition home or self-care (01) ==
LOC: ER 20:41
DX: R06.02 Shortness of breath (principal); R07.9 Chest pain, unspecified; Z88.0 Allergy status to penicillin; F17.200 Nicotine dependence, unspecified, uncomplicated
CPT/HCPCS: 36415; 71046; 76705; 80053; 81001; 83690; 84484; 84703; 85025; 85379; 93005; 93010; 99285

== ENCOUNTER 2020-03-09 22:39 | Emergency (ER) | payer SELFPAY ==
[2020-03-09 22:58] VITALS: BP 148/105
--- NOTE | 2020-03-09 23:31 | ER Document Report ---
ED Medical Screen (RME) - General Chief Complaint: Chest Pain Stated Complaint: CHEST PAIN,SHORTNESS OF BREATH Time Seen by Provider: 03/09/20 23:30 Mode of Arrival: Ambulatory Information source: Patient Notes: 25-year-old female patient presents the emergency department chief complaint of chest pain shortness of breath. Patient reports symptoms started 1 hour ago. She states she was sleeping and woke up to severe sharp stabbing pains in the left side of her chest under her breast and also shortness of breath and palpitations. She states she has had similar symptoms in the past and they stated it was related to her gallbladder. She has never had her gallbladder removed. She denies any cardiac history. She is a smoker, does not take any control, has not had any recent travel and has never had a DVT or PE. Her heart rate is normal in triage. EKG is in progress. I have greeted and performed a rapid initial assessment of this patient. A comprehensive ED assessment and evaluation of the patient, analysis of test results and completion of the medical decision making process will be conducted by additional ED providers. I have specifically instructed the patient or family members with the patient to immediately return to any nursing staff should anything change in the patient's condition or with their chief complaint. TRAVEL OUTSIDE OF THE [place] IN LAST 30 DAYS: No - Related Data Allergies/Adverse Reactions: amoxicillin [Amoxicillin] Allergy (Verified 09/20/15 05:26) Past Medical History - Immunizations Hx Diphtheria, Pertussis, Tetanus Vaccination: Yes Physical Exam - Vital signs Vitals: Temp Pulse Resp BP Pulse Ox 98.4 F 93 28 H 148/105 H 100 03/09/20 22:57 03/09/20 22:57 03/09/20 22:57 03/09/20 22:57 03/09/20 22:57 Course - Vital Signs Vital signs: Temp Pulse Resp BP Pulse Ox 98.4 F 93 28 H 148/105 H 100 03/09/20 22:57 03/09/20 22:57 03/09/20 22:57 03/09/20 22:57 03/09/20 22:57
--- NOTE | 2020-03-10 09:24 | EKG REPORT ---
SEVERITY:- NORMAL ECG - SINUS RHYTHM : Confirmed by: Stephanie Acevedo 10-Mar-2020 09:23:21
== END 2020-03-10 03:48 | disposition left against medical advice (07) ==
LOC: ER 22:39
DX: Z53.20 Procedure and treatment not carried out because of patient's decision for unspecified reasons (principal); R07.9 Chest pain, unspecified; R06.02 Shortness of breath; R00.2 Palpitations; F17.200 Nicotine dependence, unspecified, uncomplicated
CPT/HCPCS: 93005; 93010; 99281

== ENCOUNTER 2020-07-01 19:05 | Emergency (ER) | payer SELFPAY ==
--- NOTE | 2020-07-01 20:31 | ER Document Report ---
ED Medical Screen (RME) - General Chief Complaint: Abdominal Pain Stated Complaint: ABDOMINAL PAIN Time Seen by Provider: 07/01/20 20:20 Notes: Patient is a 25-year-old female with a history of cholelithiasis who presents the emergency department with a chief complaint of right upper abdominal pain. Patient states that her pain will come and go. She also reports that today her symptoms have gotten worse and she has had the pain over the past couple of days. She also reports some pain to her left mid to lower abdomen. Describes her pain is a sharp stabbing pain. Exam: Tender right upper quadrant. I have greeted and performed a rapid initial assessment of this patient. A comprehensive ED assessment and evaluation of the patient, analysis of test results and completion of medical decision making process will be conducted by an additional ED providers. TRAVEL OUTSIDE OF THE [place] IN LAST 30 DAYS: No - Related Data Allergies/Adverse Reactions: amoxicillin [Amoxicillin] Allergy (Verified 03/09/20 23:40) Past Medical History - Immunizations Hx Diphtheria, Pertussis, Tetanus Vaccination: Yes Physical Exam - Vital signs Vitals: Temp Pulse Resp BP Pulse Ox 98.3 F 82 15 167/85 H 100 07/01/20 19:44 07/01/20 19:44 07/01/20 19:44 07/01/20 19:44 07/01/20 19:44 Course - Vital Signs Vital signs: Temp Pulse Resp BP Pulse Ox 98.3 F 82 15 167/85 H 100 07/01/20 19:44 07/01/20 19:44 07/01/20 19:44 07/01/20 19:44 07/01/20 19:44
[2020-07-01 21:07] LABS: APPEARANCE,URINE SLIGHTLY-CLOUDY; BILIRUBIN,URINE NEGATIVE (NEGATIVE); COLOR,URINE YELLOW; GLUCOSE, URINE NEGATIVE (NEGATIVE); KETONES,URINE NEGATIVE (NEGATIVE); LEUKOCYTE ESTERASE,URINE MODERATE (NEGATIVE); NITRITE,URINE NEGATIVE (NEGATIVE); PROTEIN,URINE NEGATIVE (NEGATIVE); URINE SPECIFIC GRAVITY 1.016; UROBILINOGEN,URINE NEGATIVE mg/dL (<2.0)
[2020-07-01 21:39] LABS: ABSOLUTE EOSINOPHILS # (AUTO) 0.2 10^3/uL (0.0-0.6); ABSOLUTE LYMPHOCYTES (AUTO) 2.2 10^3/uL (0.5-4.7); ABSOLUTE MONOCYTES (AUTO) 0.8 10^3/uL (0.1-1.4); ABSOLUTE NEUT (AUTO) 8.9 10^3/uL (1.7-8.2); BASOPHILS % (AUTO) 0.3 % (0-2); EOSINOPHILS % (AUTO) 1.4 % (0-6); HEMATOCRIT 42.4 % (36.0-47.0); HEMOGLOBIN 14.6 g/dL (12.0-15.5); LYMPHOCYTES % (AUTO) 18.1 % (13-45); MEAN CORPUSCULAR HGB CONC 34.3 g/dL (32.0-36.0); MEAN CORPUSCULAR VOLUME 90 fl (80-97); MONOCYTES % (AUTO) 6.5 % (3-13); PLATELET COUNT 363 10^3/uL (150-450); RED CELL DISTRIBUTION WIDTH 12.4 % (11.5-14.0); SEGMENTED NEUTROPHILS % (AUTO) 73.7 % (42-78); TOTAL CELLS COUNTED % (AUTO) 100 %
[2020-07-01 21:51] LABS: ALBUMIN 4.5 g/dL (3.5-5.0); ALKALINE PHOSPHATASE 81 U/L (38-126); ANION GAP 10 (5-19); ASPARTATE AMINO TRANSFERASE 25 U/L (14-36); BILIRUBIN,DIRECT 0.1 mg/dL (0.0-0.4); BILIRUBIN,TOTAL 0.4 mg/dL (0.2-1.3); BLOOD UREA NITROGEN 12 mg/dL (7-20); CALCIUM 9.9 mg/dL (8.4-10.2); CARBON DIOXIDE 26 mmol/L (22-30); CHLORIDE 103 mmol/L (98-107); GLUCOSE 90 mg/dL (75-110); POTASSIUM 4.4 mmol/L (3.6-5.0)
--- NOTE | 2020-07-01 22:51 | RADIOLOGY REPORT (SQ) ---
EXAM DESCRIPTION: U/S ABDOMEN LIMITED W/O DOP CLINICAL HISTORY: 25 years Female; RUQ abd pain; hx of stones TECHNIQUE: Abdominal ultrasound was performed. COMPARISON: Limited abdominal ultrasound 02/20/2020. FINDINGS: Pancreas: Pancreas is obscured by overlying bowel gas and not well seen. Liver: Liver measures 11.9 cm. Overall it is not well seen. Portal vein is not clearly identified.. Gallbladder: Multiple calcified shadowing stones are present in the gallbladder. Sonographic Shannon's is present. Bladder wall measures 1.8 mm. No pericholecystic fluid. Common bile duct: 3.1 mm. Right kidney: The kidney measures 10.5 x 5.9 cm.. No hydronephrosis. Aorta:Visualized portions are within normal limits. IMPRESSION: Limited exam demonstrating cholelithiasis. Positive sonographic Shannon's.
--- NOTE | 2020-07-02 03:02 | ER Document Report ---
ED GI/ - General Chief Complaint: Abdominal Pain Stated Complaint: ABDOMINAL PAIN Time Seen by Provider: 07/01/20 20:20 Primary Care Provider: [facility] [Provider Group] - 07/04/20 Notes: Patient is a 25-year-old female who comes emergency department for chief complaint of right upper quadrant pain. Patient states for the past several days she has had constant sharp pain that radiates up into her ribs and around to her back. She reports pain is worse with eating, she has tried eating bland with vegetables and chicken but still has constant pain over the past several days. She reports nausea but denies vomiting. She denies fever. She states she has been referred to surgery at [facility] but has been referred since March and has still not heard anything. She takes no daily medications, denies any surgeries, denies , denies any past medical history otherwise. TRAVEL OUTSIDE OF THE [place] IN LAST 30 DAYS: No - Related Data Allergies/Adverse Reactions: amoxicillin [Amoxicillin] Allergy (Verified 03/09/20 23:40) Past Medical History - General Information source: Patient - Social History Smoking Status: Never Smoker Frequency of alcohol use: None Drug Abuse: None Lives with: Family Family History: Reviewed & Not Pertinent Surgical Hx: Negative - Immunizations Hx Diphtheria, Pertussis, Tetanus Vaccination: Yes Review of Systems - Review of Systems Constitutional: No symptoms reported EENT: No symptoms reported Cardiovascular: No symptoms reported Respiratory: No symptoms reported Gastrointestinal: See HPI Genitourinary: No symptoms reported Female Genitourinary: No symptoms reported Musculoskeletal: No symptoms reported Skin: No symptoms reported Hematologic/Lymphatic: No symptoms reported Neurological/Psychological: No symptoms reported Physical Exam - Vital signs Vitals: Temp Pulse Resp BP Pulse Ox 98.3 F 82 15 167/85 H 100 07/01/20 19:44 07/01/20 19:44 07/01/20 19:44 07/01/20 19:44 07/01/20 19:44 - Notes Notes: GENERAL: Alert, interacts well. No acute distress. HEAD: Normocephalic, atraumatic. EYES: Pupils equal, round, and reactive to light. Extraocular movements intact. ENT: Oral mucosa moist, tongue midline. Oropharynx unremarkable. Airway patent. NECK: Full range of motion. Supple. Trachea midline. No lymphadenopathy. LUNGS: Clear to auscultation bilaterally, no wheezes, rales, or rhonchi. No respiratory distress. Non-tender chest wall. HEART: Regular rate and rhythm. No murmur ABDOMEN: Tenderness in the right upper quadrant specifically, however remaining abdomen is soft and benign, no other concerning findings, no severe guarding. EXTREMITIES: Moves all 4 extremities spontaneously. No edema, normal radial and dorsalis pedis pulses bilaterally. No cyanosis. BACK: no cervical, thoracic, lumbar midline tenderness. No saddle anesthesia, normal distal neurovascular exam. Moves all extremities in full range of motion. NEUROLOGICAL: Alert and oriented x3. Normal speech. Cranial nerves II through XII grossly intact. Strength 5/5 in all extremities. PSYCH: Normal affect, normal mood. SKIN: Warm, dry, normal turgor. No rashes or lesions noted. Course - Re-evaluation Re-evalutation: Patient talkative, well-appearing, no signs of distress. She does have right upper quadrant tenderness on exam however. Remaining abdomen is unremarkable. CBC shows mild leukocytosis at 12 with elevation of neutrophils but no bandemia. Chemistry and lipase unremarkable. Urinalysis borderline, negative, urine culture. Ultrasound shows cholelithiasis without cholecystitis. Positive sonographic Shannon sign. Discussed with patient, she initially was stating she was uncertain what she wanted to do, then unprompted changed her mind and stated she wanted to have a surgeon consulted. I will consult surgery, patient has had 4 ultrasounds and now over 5 visits for the same suspected etiology. I discussed with Dr. Lee, general surgeon aircraft rigging and controls mechanic. Discussed history, previous visits, evaluation, work-up. He feels patient does not need to be emergently admitted to the hospital and can be appropriately discharged with close surgical clinic follow-up and return precautions. I did discuss this with patient and significant other, they did state understanding and agreement, provided with medications, discussed return precautions in detail. Patient asymptomatic on reevaluation, able to tolerate p.o. Stable and well-appearing at time of discharge. - Vital Signs Vital signs: Temp Pulse Resp BP Pulse Ox 98.3 F 67 16 135/71 H 94 07/01/20 19:44 07/02/20 07:14 07/02/20 07:14 07/02/20 07:14 07/02/20 07:14 - Laboratory Result Diagrams: 07/01/20 21:07/01/20 21:01 Laboratory results interpreted by me: 07/01/20 07/01/20 20:33 21:01 WBC 12.0 H Absolute Neuts (auto) 8.9 H Ur Leukocyte Esterase MODERATE H Discharge - Discharge Clinical Impression: Cholelithiasis Qualifiers: Cholelithiasis location: gallbladder Cholecystitis presence: without cholecystitis Biliary obstruction: without biliary obstruction Qualified Code(s): K80.20 - Calculus of gallbladder without cholecystitis without obstruction Abdominal pain Qualifiers: Abdominal location: generalized Qualified Code(s): R10.84 - Generalized abdominal pain Condition: Stable Disposition: HOME, SELF-CARE Additional Instructions: You have gallstones. Most likely this is the cause of your symptoms. Avoid any fried, fatty, greasy, oily foods, take the ketorolac if needed for pain, take the Phenergan if needed for nausea, follow-up closely with the clinic referral listed for scheduling management of this. Return if you worsen including severe worsening pain, vomiting, fever, or any other concerning or worsening symptoms. Prescriptions: Ketorolac Tromethamine [Toradol 10 mg Tablet] 10 mg PO Q8HP PRN #30 tablet PRN Reason: Promethazine HCl [Phenergan 25 mg Tablet] 25 mg PO Q6H PRN #20 tablet PRN Reason: Referrals: [facility] [Provider Group] - 07/04/20
[2020-07-02] MEDS ORDERED: MORPHINE SULFATE 10 MG/ML INJ IV ONE (03:12)
[2020-07-02] MEDS ORDERED: ONDANSETRON HCL INJ/PF 4 MG/2 ML SDV IV ONE (03:12)
[2020-07-02] MEDS ORDERED: KETOROLAC TROMETHAMINE INJ/PF 30 MG/1 ML SDV IV ONE (03:12)
[2020-07-02] MEDS ORDERED: NORMAL SALINE 1000 ML 1,000 ML IV ONE (03:13)
[2020-07-02 07:14] VITALS: BP 135/71
== END 2020-07-02 07:14 | disposition home or self-care (01) ==
LOC: ER 19:05
DX: K80.20 Calculus of gallbladder without cholecystitis without obstruction (principal); R10.84 Generalized abdominal pain; Z88.0 Allergy status to penicillin
CPT/HCPCS: 99285; 96361; 96374; 96375; 36415; 87086; 83690; 85025; 81025; 80053; 81001; 76705; J1885; J2270; J2405; J7030